=== PATIENT | male | born 1950 | race American Indian/Alaskan Native ===

== ENCOUNTER 2017-10-24 03:15 | Emergency (ER) | payer MEDICARE ==
--- NOTE | 2017-10-24 05:36 | Emergency Department Report ---
ED Male HPI - General Chief complaint: Urogenital-Male Stated complaint: STD Time Seen by Provider: 10/24/17 05:31 Source: patient Mode of arrival: Ambulatory Limitations: No Limitations - History of Present Illness Initial comments: Patient is a 67-year-old male with no prior medical history who presents to ED complaining of bumps around his penis 3 days. Patient states that about a week ago he had unprotected sex with a new partner and found out that the pain sexually active with other partners. Patient thinks he has contracted an STD from this partner. He denies penile discharge, dysuria, hematuria, testicular pain or swelling. He describes bumps around his penis and has burning and tingling and painful. - Related Data Previous Rx's Medication Instructions Recorded Last Taken Type Acyclovir [Acyclovir Ointment] 1 applic TP TID #1 tube 10/24/17 Unknown Rx Acyclovir [Zovirax Tab] 800 mg PO Q12H #20 tab 10/24/17 Unknown Rx Allergies Allergy/AdvReac Type Severity Reaction Status Date / Time No Known Allergies Allergy Unverified 10/24/17 04:06 ED Review of Systems ROS: Stated complaint: STD Other details as noted in HPI Constitutional: denies: chills, fever Eyes: denies: eye pain, eye discharge, vision change ENT: denies: ear pain, throat pain Respiratory: denies: cough, shortness of breath, wheezing Cardiovascular: denies: chest pain, palpitations Endocrine: no symptoms reported Gastrointestinal: denies: abdominal pain, nausea, diarrhea Genitourinary: denies: urgency, dysuria, frequency, hematuria, testicular pain, testicular mass Musculoskeletal: denies: back pain, joint swelling, arthralgia Skin: denies: rash, lesions Neurological: denies: headache, weakness, paresthesias Psychiatric: denies: anxiety, depression Hematological/Lymphatic: denies: easy bleeding, easy bruising ED Past Medical Hx - Past Medical History Hx Hypertension: Yes - Surgical History Past Surgical History?: No - Social History Smoking Status: Never Smoker Substance Use Type: None - Medications Home Medications: Home Medications Medication Instructions Recorded Confirmed Last Taken Type Acyclovir [Acyclovir Ointment] 1 applic TP TID #1 tube 10/24/17 Unknown Rx Acyclovir [Zovirax Tab] 800 mg PO Q12H #20 tab 10/24/17 Unknown Rx ED Physical Exam - General Limitations: No Limitations General appearance: alert, in no apparent distress - Head Head exam: Present: atraumatic, normocephalic - Eye Eye exam: Present: normal appearance - ENT ENT exam: Present: mucous membranes moist - Neck Neck exam: Present: normal inspection - Respiratory Respiratory exam: Present: normal lung sounds bilaterally. Absent: respiratory distress - Cardiovascular Cardiovascular Exam: Present: regular rate, normal rhythm. Absent: systolic murmur, diastolic murmur, rubs, gallop - GI/Abdominal GI/Abdominal exam: Present: soft, normal bowel sounds - Rectal Rectal exam: Present: deferred - exam: Absent: urethral discharge, scrotal swelling External exam: Present: erythema, lesions (around penis head). Absent: swelling , lacerations, ecchymosis, bleeding - Extremities Exam Extremities exam: Present: normal inspection - Back Exam Back exam: Present: normal inspection - Neurological Exam Neurological exam: Present: alert, oriented X3 - Psychiatric Psychiatric exam: Present: normal affect, normal mood - Skin Skin exam: Present: warm, dry, intact, normal color. Absent: rash ED Course Vital Signs 10/24/17 04:01 Temperature 99.3 F Pulse Rate 109 H Respiratory 16 Rate Blood Pressure 131/81 O2 Sat by Pulse 98 Oximetry ED Medical Decision Making - Medical Decision Making 67-year-old male presents with STD exposure/penile herpes break. ED course: Analysis and gonorrhea and Chlamydia cultures obtained. Urinalysis positive for leukorrhea Patient received 250 mg of Rocephin, azithromycin 1 g, Flagyl 2 g. Discussed with patient possible STD due to exposure. Discussed with patient findings and treatment Discussed prophylaxis treatment patient is to abstain from sex 7-10 days as treatment. Discussed patient partner knowledge and treatment. Discussed the follow-up with the health department for further STD testing. Patient's alert and oriented times 3. Vital signs are normal patient is in no acute discharge. Patient will be discharged home with instructions. Critical care attestation.: If time is entered above; I have spent that time in minutes in the direct care of this critically ill patient, excluding procedure time. 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 Take all your medications as you've been prescribed. If you have any worsening symptoms or develop new symptoms please return to ED immediately. Prescriptions: Acyclovir [Acyclovir Ointment] 1 applic TP TID #1 tube Acyclovir [Zovirax Tab] 800 mg PO Q12H #20 tab Referrals: EMERY SANCHEZ MD [Primary Care Provider] - 3-5 Days [facility] [Outside] - 3-5 Days [facility] [Outside] - 3-5 Days [facility] [Outside] - 3-5 Days Forms: Work/School Release Form(ED) Time of Disposition: 05:38
[2017-10-24] MEDS ORDERED: FLAGYL PO ONE (05:48)
[2017-10-24] MEDS ORDERED: ROCEPHIN IM ONE (05:48)
[2017-10-24] MEDS ORDERED: ZITHROMAX PO ONE (05:48)
[2017-10-24] MEDS ORDERED: XYLOCAINE 1% MPF 5 mL INFILTRATI ONE (05:48)
[2017-10-24 07:00] VITALS: BP 129/76
[2017-10-24 07:06] LABS: Bilirubin,Urine NEG (Negative); Blood,Urine NEG (Negative); Color,Urine Yellow (Yellow); Protein,Urine <15 mg/dL mg/dL (Negative)
== END 2017-10-24 06:53 | disposition home or self-care (01) ==
LOC: ED 03:15
DX: A60.00 Herpesviral infection of urogenital system, unspecified (principal); I10 Essential (primary) hypertension
CPT/HCPCS: 81001; 87591; 96372; 99283; J0696